=== PATIENT | female | born 1995 | race African-American/Black ===

== ENCOUNTER 2021-01-03 11:39 | Observation (INO) | payer MEDICAID ==
[~2021-01-03] VITALS: Ht 165.1 cm; Wt 85.7 kg
[2021-01-03] MEDS ORDERED: PREN1TAB78 MT (14:32)
== END 2021-01-03 15:00 | disposition home or self-care (01) ==
LOC: 8 EST LDRP 11:39
PROVIDERS: ADMIT Specialist; ATTEND Specialist
DX: O9A.213 Injury, poisoning and certain other consequences of external causes complicating pregnancy, third trimester (principal); O26.893 Other specified pregnancy related conditions, third trimester; R10.30 Lower abdominal pain, unspecified; Z3A.35 35 weeks gestation of pregnancy; Y04.0XXA Assault by unarmed brawl or fight, initial encounter; Y93.89 Activity, other specified; Y92.89 Other specified places as the place of occurrence of the external cause
CPT/HCPCS: 59025; 76805; 76818; G0378; 99281

== ENCOUNTER 2025-03-22 01:57 | Emergency (ER) | payer MEDICAID ==
[~2025-03-22] VITALS: Ht 165.1 cm; Wt 118.0 kg
[~2025-03-22 01:57] MED LIST: PREN1TAB78 MT
[2025-03-22 02:00] VITALS: O2SAT 99
[2025-03-22 02:15] VITALS: BP 131/94; PULSE 107; RESP 18; TEMP 36.7; O2SAT 98
[2025-03-22 02:58] LABS: BASOPHILS % 0.2 % (0.0-2.0); EOSINOPHILS % 1.2 % (0.0-5.0); HEMATOCRIT. 38.6 % (36.0-48.0); HEMOGLOBIN. 13.2 g/dL (12.0-16.0); LYMPHOCYTES % 53.9 % (20.0-50.0); MEAN CORPUSCULAR HGB CONC 34.2 g/dL (31.0-37.0); MEAN CORPUSCULAR VOLUME 99.6 fL (81.0-99.0); NEUTROPHILS % 38.7 % (40.0-76.0); PLATELET 290 x1000/uL (130-400); RED BLOOD CELL COUNT 3.88 mill/uL (4.2-5.4); RED CELL DISTRIBUTION WIDTH 15.3 % (11.6-14.6); WHITE BLOOD COUNT 8.2 x1000/uL (4.5-11.0)
[2025-03-22 03:11] LABS: CHLORIDE 108 mEq/L (98-107); POTASSIUM 3.4 mEq/L (3.5-5.1); SODIUM 140 mEq/L (136-145)
[2025-03-22 03:12] LABS: CALCIUM 8.6 mg/dL (8.7-10.4); CARBON DIOXIDE 26 mEq/L (21-32)
[2025-03-22 03:17] LABS: CREATININE 0.9 mg/dL (0.6-1.0); GLUCOSE 112 mg/dL (70-105)
[2025-03-22 03:18] LABS: UREA NITROGEN BLOOD < 5 mg/dL (9-23)
[2025-03-22 03:19] LABS: ALANINE AMINOTRANSFERASE 39 IU/L (10-49); ALBUMIN 4.3 g/dL (3.2-4.8); ASPARTATE AMINOTRANSFERASE 71 IU/L (<34); BILIRUBIN DIRECT 0.2 mg/dL (<=3.0)
[2025-03-22 03:20] LABS: BILIRUBIN TOTAL 0.5 mg/dL (0.1-1.0); PROTEIN TOTAL 7.3 g/dL (6.0-8.3)
[2025-03-22 03:34] VITALS: TEMP 98.1
[2025-03-22] MEDS: ACETAMINOPHEN 325MG TABLET PO ONE (03:34)
[2025-03-22] MEDS: ONDANSETRON HCL 4MG TABLET PO ONE (03:35)
[2025-03-22 03:59] LABS: CLARITY URINE CLEAR (CLEAR); COLOR URINE YELLOW (YELLOW); GLUCOSE URINE NEGATIVE (NEGATIVE); KETONES URINE TRACE (NEGATIVE); LEUKOCYTE ESTERASE URINE NEGATIVE (NEGATIVE); NITRITE URINE NEGATIVE (NEGATIVE); OCCULT BLOOD URINE TRACE (NEGATIVE); PH URINE 6.5 (4.5-8.0); PROTEIN URINE 1+ (NEGATIVE); SPECIFIC GRAVITY URINE 1.025 (1.005-1.030)
[2025-03-22 04:03] LABS: BACTERIA URINE TRACE; SQUAMOUS EPITHELIAL CELL URINE FEW /lpf (RARE/1+)
[2025-03-22 04:07] LABS: HCG SCREEN NEGATIVE
[2025-03-22] MEDS ORDERED: ONDA4TAB50 MT (04:46)
== END 2025-03-22 04:51 | disposition home or self-care (01) ==
LOC: ER 01:57
DX: R11.2 Nausea with vomiting, unspecified (principal)
CPT/HCPCS: 99283; 80076; 80048; 81003; 84703; 83690; 85025; 36415; Q0162